=== PATIENT | female | born 1970 ===

== ENCOUNTER 2025-07-27 10:15 | Outpatient (CLI) | payer OTHER, SELFPAY ==
--- NOTE | 2025-07-27 10:22 | MM_ITS ---
WS: [id number] SCREENING DIGITAL BREAST TOMOSYNTHESIS MAMMOGRAM WITH CAD HISTORY: SCREENING COMPARISON: None available. Bilateral CC and MLO with tomosynthesis and synthetic mammography submitted. Computer aided detection analyzed. Breast composition: The breasts are heterogeneously dense, which may obscure small masses. There is a cluster of well-circumscribed high density nodules in the lateral LEFT breast near 2:00 at a middle depth. No additional abnormalities or calcifications. MM/MM scr tomosynthesis [id number] IMPRESSION: BI-RADS: 0 - Incomplete: Need additional imaging evaluation FOLLOW UP: Need Additional Imaging Recommendation: LEFT breast ultrasound, limited.
== END 2025-07-27 10:16 | disposition home or self-care (01) ==
LOC: RAD 10:19
PROVIDERS: Visit Provider Electrodiagnostic Medicine
DX: Z12.31 Encounter for screening mammogram for malignant neoplasm of breast (principal); R92.333 Mammographic heterogeneous density, bilateral breasts; N63.22 Unspecified lump in the left breast, upper inner quadrant
CPT/HCPCS: 77063; 77067